=== PATIENT | female | born 1935 | race Caucasian/White ===

== ENCOUNTER 2017-06-16 11:40 | Emergency (ER) | payer MEDICARE, OTHER, MEDICAID ==
[2017-06-16] MEDS: ONDANSETRON (ODT) 4 MG TAB ODT (12:16)
[2017-06-16] MEDS: HYDROCODONE/APAP (5/325) TAB PO (12:16)
== END 2017-06-16 14:02 | disposition home or self-care (01) ==
LOC: E/R 11:40
DX: M25.552 Pain in left hip (principal); M79.89 Other specified soft tissue disorders; I10 Essential (primary) hypertension; Z79.82 Long term (current) use of aspirin
CPT/HCPCS: 72170; 99284-25

== ENCOUNTER 2017-08-06 11:28 | Emergency (ER) | payer MEDICARE, OTHER ==
[2017-08-06] MEDS ORDERED: SOD CHLORIDE 0.9% 100 ML (11:59)
[2017-08-06] MEDS ORDERED: IODIXANOL LOCM 100 ML BTL (11:59)
[2017-08-06 12:07] LABS: ADD MAN DIFF? NO
[2017-08-06 12:11] LABS: BASOPHILS % 0.6 % (0.0-2.0); EOSINOPHILS # 0.1 10^3/ul (0.0-0.5); EOSINOPHILS % 2.8 % (0.0-7.0); HEMATOCRIT 38.7 % (37.0-47.0); HEMOGLOBIN 12.6 g/dl (12.0-16.0); LYMPHOCYTES # 1.6 10^3/ul (0.8-2.9); LYMPHOCYTES % 32.4 % (15.0-51.0); MEAN CORPUSCULAR HEMOGLOBIN 31.5 pg (29.0-33.0); MEAN CORPUSCULAR HGB CONC 32.6 g/dl (32.0-37.0); MEAN CORPUSCULAR VOLUME 96.8 fl (82.0-101.0); MEAN PLATELET VOLUME 10.8 fl (7.4-10.4); MONOCYTE # 0.4 10^3/ul (0.3-0.9); MONOCYTES % 7.6 % (0.0-11.0); NEUTROPHIL # 2.8 10^3/ul (1.6-7.5); NEUTROPHILS % 55.8 % (39.0-77.0); PLATELET COUNT 289 10^3/UL (140-415); RED CELL DISTRIBUTION WIDTH 13.7 % (11.5-14.5)
[2017-08-06 12:27] LABS: ALANINE AMINOTRANSFERASE 17 IU/L (13-69); ALBUMIN 4.3 g/dl (3.3-4.9); ALBUMIN/GLOBULIN RATIO 1.22; ALKALINE PHOSPHATASE 80 IU/L (42-121); ANION GAP 14 (8-16); ASPARTATE AMINO TRANSFERASE 23 IU/L (15-46); BILIRUBIN,INDIRECT 0.7 mg/dl (0-1.1); BILIRUBIN,TOTAL 0.7 mg/dl (0.2-1.3); BLOOD UREA NITROGEN 16 mg/dl (7-20); CALCIUM 9.3 mg/dl (8.4-10.2); CARBON DIOXIDE 26 mmol/L (21-31); CHLORIDE 109 mmol/L (97-110); CHOL/HDL RATIO 4.5 RATIO; CHOLESTEROL 191 mg/dl (100-200); CREATININE 1.03 mg/dl (0.44-1.00); GLUCOSE 112 mg/dl (70-220); HDL CHOLESTEROL 42 mg/dl (33-92); LDL CHOLESTEROL,CALCULATED 121 mg/dl; SODIUM 145 mmol/L (135-144); TOTAL PROTEIN 7.8 g/dl (6.1-8.1); TRIGLYCERIDES 141 mg/dl (0-149)
[2017-08-06 12:34] LABS: PARTIAL THROMBOPLASTIN TIME 27.8 Sec (25.0-35.0); PROTIME 13.1 Sec (11.9-14.9)
[2017-08-06 12:35] LABS: INR 0.98
[2017-08-06 12:40] LABS: TROPONIN-I < 0.012 ng/ml (0.00-0.12)
[2017-08-06] MEDS: ALTEPLASE (tPA) 1 MG/ML BOLUS SYG IV* (12:43)
[2017-08-06] MEDS: ALTEPLASE 100 MG INJ IV* (12:44)
[2017-08-06] MEDS: SOD CHLORIDE 0.9% 50 ML IV (12:44)
[2017-08-06 13:56] LABS: HEMOGLOBIN A1C 4.9 % (0-5.9)
== END 2017-08-06 16:48 | disposition short-term general hospital (02) ==
LOC: E/R 11:28
DX: I63.9 Cerebral infarction, unspecified (principal); I10 Essential (primary) hypertension; R41.82 Altered mental status, unspecified; Z79.82 Long term (current) use of aspirin
CPT/HCPCS: 37195; 70450; 70496; 70498; 71045; 80053; 80061; 83036; 84484; 85025; 85610; 85730; 86850; 86900; 86901; 93005; 99291-25